=== PATIENT | male | born 1960 | race Hispanic/Latino ===

== ENCOUNTER 2021-07-09 09:10 | Day surgery (SDC) | payer OTHER ==
[~2021-07-09 09:10] MED LIST: SODIUM CHLORIDE 0.9% 1000 ML 1,000 ML IV SCH
[2021-07-09] MEDS ORDERED: SODIUM CHLORIDE 0.9% 1000 ML 1,000 ML ONE (10:34)
[2021-07-09] MEDS ORDERED: WATER FOR IRRIG STERILE 250 ML BOTTLE IR ONE (10:37)
--- NOTE | 2021-07-09 11:07 | Anesthesia Consultation ---
Anesthesia Consult and Med Hx Date of service: 07/09/21 - Airway Anesthetic Teeth Evaluation: Good ROM Head & Neck: Adequate Mental/Hyoid Distance: Adequate Mallampati Class: Class II Intubation Access Assessment: Probably Good - Pre-Operative Health Status ASA Pre-Surgery Classification: ASA2 Proposed Anesthetic Plan: MAC - Pulmonary Hx Smoking: Yes (1/2 PPD) Hx Respiratory Symptoms: No Hx Sleep Apnea: Yes (+ CPAP) - Cardiovascular System Hx Hypertension: Yes Hx Heart Attack/AMI: No - Central Nervous System CVA: No - Endocrine Hx Renal Disease: No Hx Liver Disease: No Hx Insulin Dependent Diabetes: No Hx Non-Insulin Dependent Diabetes: No Hx Thyroid Disease: No - Other Systems Hx Obesity: No - Additional Comments Anesthesia Medical History Comments: No hx anesthetic complications.
--- NOTE | 2021-07-09 11:08 | Anesthesia Day of Surgery ---
Anesthesia Day of Surgery - Day of Surgery Patient Examined: Yes Patient H&P Reviewed: Yes Patient is NPO: Yes
[2021-07-09] MEDS ORDERED: propofoL 200 MG/20 ML VIAL IV ONE ×2 (13:02→13:13)
--- NOTE | 2021-07-09 13:31 | Procedure Note ---
Date of procedure: 07/09/21 Pre-op diagnosis: Dysphagia Post-op diagnosis: other (Mild,Benign Esophageal Stenosis (s/p Balloon dilation)/ Mild, Lillie Esophagitis/ Mild to Moderate Erosive Esophagitis/Gastritis/ Multiple,Clean Based Gastric Ulcers (Prepyloric area)) Procedure: EGD with Biopsy Esophageal Balloon Dilation (20 mm Balloon) Anesthesia: MAC Surgeon: KLARISSA ANTUNEZ Estimated blood loss: minimal Pathology: list Specimen disposition: to lab Condition: stable Disposition: same day (Treat with PPi and Fluconazole; avoid aspirin and NSAID for 5 days, otherwise resume previous medication. Strongly advice the patient to avoid smoking and alcohol use and F/U in 1 to 2 weeks ([phone]).)
--- NOTE | 2021-07-09 13:38 | Operative Report ---
DATE OF SURGERY: 07/09/2021 PROCEDURE: EGD with biopsy and esophageal dilation. INDICATIONS: This is a 61-year-old white male who has a history of smoking as well as alcohol use, who has been having some problems with dysphagia and had been sent for further evaluation for his symptoms. DESCRIPTION OF PROCEDURE: Procedure was done after getting informed consent with MAC anesthesia. The instrument was passed through the hypopharynx into the esophagus, which showed presence of mild Lillie esophagitis in the mid esophagus. Photodocumentation and biopsy was obtained. There was some [id number] distal erosive esophagitis present as well as mild benign esophageal stenosis. The esophagus was dilated with a 20 mm balloon at the end of the procedure and biopsy was also done from the distal esophagus to assess for the severity of the erosive esophagitis. The stomach showed 2 clean-based gastric ulcers in the antrum close to the prepyloric area. Photodocumentation and biopsy was obtained from these areas as well as from the gastric antrum and gastric body to rule out for H. pylori. The pylorus was patent. The duodenum in the first and second portion appeared normal. There was no evidence of any active bleeding noted either in the gastric or the duodenal lumen. ASSESSMENT: Dysphagia, mild benign esophageal stenosis, status post esophageal dilation using a 20 mm balloon. Mild Lillie esophagitis, mild to moderate erosive esophagitis, clean-based gastric antral ulcers, which were prepyloric, and gastritis. PLAN: Treat the patient with PPI and also treat the patient with fluconazole. Have the patient avoid aspirin and aspirin-related products for the next few days. Also, strongly advised the patient to refrain from smoking and alcohol use and follow up in the office in 1-2 weeks' time. Procedure was done in the GI lab with the assistance of the GI lab team, which included the GI nurse, the hazardous materials waste technician and with the assistance of anesthesia. TID: [id number] RECEIPT: [id number] CY/ELTON
--- NOTE | 2021-07-09 13:45 | Post Anesthesia Evaluation ---
- Post Anesthesia Evaluation Patient Participated: Yes Airway Patent: Yes Stable Respiratory Function: Yes Nausea/Vomiting: No Temp > 96.8F: Yes Pain Manageable: Yes Adequeate Hydration: Yes Anesthesia Complications: No
[2021-07-09 15:15] VITALS: BP 127/82
== END 2021-07-09 09:11 | disposition home or self-care (01) ==
LOC: GIO 09:10
DX: R13.10 Dysphagia, unspecified (principal); K21.00 Gastro-esophageal reflux disease with esophagitis, without bleeding; K29.50 Unspecified chronic gastritis without bleeding; K31.89 Other diseases of stomach and duodenum; I10 Essential (primary) hypertension; G47.30 Sleep apnea, unspecified; F17.210 Nicotine dependence, cigarettes, uncomplicated; Z79.899 Other long term (current) drug therapy; Z98.890 Other specified postprocedural states
CPT/HCPCS: 43239; 43249; 88305; 88342; C1726; J2704; J7030; J7120; Q0162